=== PATIENT | female | born 1975 | race Caucasian/White ===

== ENCOUNTER → 2018-03-17 | Outpatient (CLI) | payer MEDICAID ==
[2018-03-17 09:24] LABS: HCT 42.2 % (34.0-46.0); MCHC 33.1 g/dL (31.0-37.0); MCV 90.6 fL (80.0-100.0); Mean Platelet Volume 7.4; Platelet Count 234 k/uL (150-450); RBC 4.66 m/uL (3.80-5.40); RDW 12.6 % (11.5-15.5); WBC 6.6 k/uL (3.8-10.6)
[2018-03-17 09:48] LABS: ALT 25 U/L (9-52); AST 17 U/L (14-36); Albumin 3.9 g/dL (3.5-5.0); Alkaline Phosphatase 46 U/L (38-126); Anion Gap 9 mmol/L; Blood Urea Nitrogen 13 mg/dL (7-17); Calcium 8.8 mg/dL (8.4-10.2); Carbon Dioxide 25 mmol/L (22-30); Chloride 105 mmol/L (98-107); Cholesterol 140 mg/dL (<200); Glucose 88 mg/dL (74-99); HDL Cholesterol 65 mg/dL (40-60); LDL Cholesterol,Calculated 63 mg/dL (0-99); Potassium 4.4 mmol/L (3.5-5.1); Sodium 139 mmol/L (137-145); Total Bilirubin 0.5 mg/dL (0.2-1.3); Total Protein 6.4 g/dL (6.3-8.2); Triglycerides 60 mg/dL (<150)
[2018-03-17 10:04] LABS: T4, Free (Free Thyroxine) 1.06 ng/dL (0.78-2.19)
== END | disposition home or self-care (01) ==
LOC: LABWHC1 08:40
PROVIDERS: ATTEND Obstetrics & Gynecology Obstetrics
DX: E55.9 Vitamin D deficiency, unspecified (principal); R63.5 Abnormal weight gain
CPT/HCPCS: 36415; 80053; 80061; 82306; 84439; 84443; 85027

== ENCOUNTER → 2018-04-25 | Outpatient (CLI) | payer MEDICAID ==
--- NOTE | 2018-04-27 12:04 | MM ---
Reason for exam: screening (asymptomatic). Last mammogram was performed 5 years and 6 months ago. History: Patient has history of other cancer at age 42. Took hormonal contraceptives for 4 years. Physical Findings: A clinical breast exam by your physician is recommended on an annual basis and results should be correlated with mammographic findings. MG 3D Screening Mammo W/Cad Bilateral CC and MLO view(s) were taken. Prior study comparison: October 26, 2012, mammogram. The breast tissue is heterogeneously dense. This may lower the sensitivity of mammography. 4mm circumscribed nodularity right breast is typically benign. No significant changes when compared with prior studies. ASSESSMENT: Benign, BI-RAD 2 RECOMMENDATION: Routine screening mammogram of both breasts in 1 year.
== END | disposition home or self-care (01) ==
LOC: RADMAMWWP 09:38
PROVIDERS: ATTEND Obstetrics & Gynecology Obstetrics
DX: Z12.31 Encounter for screening mammogram for malignant neoplasm of breast (principal)
CPT/HCPCS: 77063; 77067

== ENCOUNTER → 2019-09-14 | Outpatient (CLI) | payer MEDICAID ==
--- NOTE | 2019-09-15 11:37 | MM ---
Reason for exam: screening (asymptomatic). Last mammogram was performed 1 year and 5 months ago. History: Patient has history of other cancer at age 42. Took hormonal contraceptives for 4 years. Physical Findings: A clinical breast exam by your physician is recommended on an annual basis and results should be correlated with mammographic findings. MG 3D Screening Mammo W/Cad Bilateral CC and MLO view(s) were taken. Prior study comparison: April 25, 2018, bilateral MG 3d screening mammo w/cad. October 26, 2012, mammogram. The breast tissue is extremely dense which could obscure a lesion on mammography. There is chronic nodularity in the right breast. No significant changes when compared with prior studies. ASSESSMENT: Benign, BI-RAD 2 RECOMMENDATION: Routine screening mammogram of both breasts in 1 year.
== END | disposition home or self-care (01) ==
LOC: RADMAMWWP 13:32
PROVIDERS: ATTEND Obstetrics & Gynecology Obstetrics
DX: Z12.31 Encounter for screening mammogram for malignant neoplasm of breast (principal)
CPT/HCPCS: 77063; 77067

== ENCOUNTER → 2019-10-26 | Outpatient (CLI) | payer MEDICAID ==
[2019-10-26 11:45] LABS: Basophils # (A) 0.1 k/uL (0-0.2); Basophils % (A) 1 %; Eosinophils # (A) 0.1 k/uL (0-0.7); Eosinophils % (A) 3 %; HCT 43.2 % (34.0-46.0); HGB 13.7 gm/dL (11.4-16.0); Lymphocytes # (A) 1.7 k/uL (1.0-4.8); Lymphocytes % (A) 34 %; MCH 29.5 pg (25.0-35.0); MCHC 31.6 g/dL (31.0-37.0); MCV 93.5 fL (80.0-100.0); Mean Platelet Volume 8.1; Monocytes # (A) 0.3 k/uL (0-1.0); Monocytes % (A) 6 %; Neutrophils # (A) 2.7 k/uL (1.3-7.7); Neutrophils % (A) 54 %; Platelet Count 256 k/uL (150-450); RBC 4.62 m/uL (3.80-5.40); RDW 12.5 % (11.5-15.5); WBC 5.1 k/uL (3.8-10.6)
[2019-10-26 16:55] LABS: Albumin 4.2 g/dL (3.80-4.90); Albumin/Globulin Ratio 2.21 (1.60-3.17); Anion Gap 6.4 mmol/L (4.00-12.00); Calcium 9.2 mg/dL (8.7-10.3); Carbon Dioxide 27.6 mmol/L (21.6-31.8); Chol/HDL Ratio 2.51; Globulin 1.9 g/dL (1.6-3.3); LDL Cholesterol,Calculated 66.4 mg/dL (0.0-131.0); Non-African American GFR(CKD) 106.1 (60.0-200.0); Potassium 4.3 mmol/L (3.5-5.5); Total Bilirubin 0.6 mg/dL (0.2-1.2); Total Protein 6.1 g/dL (6.2-8.2); VLDL Calculation 13.6 mg/dL (5.00-40.00)
== END | disposition home or self-care (01) ==
LOC: LABWHC1 10:34
PROVIDERS: ATTEND Internal Medicine
DX: E78.2 Mixed hyperlipidemia (principal); N83.292 Other ovarian cyst, left side
CPT/HCPCS: 36415; 80053; 80061; 84443; 85025

== ENCOUNTER 2020-07-24 13:07 | Emergency (ER) | payer MEDICAID, OTHER ==
[2020-07-24 13:15] VITALS: BP 133/86; PULSE 52; RESP 18; TEMP 98.4
--- NOTE | 2020-07-24 14:25 | ED ---
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 Patient just completed a delivery. She was attempting to give the child a vitamin K injection. Injection was performed. When the patient went to retract the needle she sustained a needle poke to her right index finger. It was enough to draw some blood. Patient is unaware of the status of infectious disease of the mother. She herself is vaccinated against hepatitis B. She did irrigate the site. Presents for needlestick testing - Related Data Allergies Allergy/AdvReac Type Severity Reaction Status Date / Time No Known Allergies Allergy Verified 07/24/20 13:15 Review of Systems ROS Statement: Those systems with pertinent positive or pertinent negative responses have been documented in the HPI. ROS Other: All systems not noted in ROS Statement are negative. Past Medical History Past Medical History: No Reported History History of Any Multi-Drug Resistant Organisms: None Reported Past Surgical History: Section Additional Past Surgical History / Comment(s): kidney surgery Past Psychological History: No Psychological Hx Reported Smoking Status: Never smoker Past Alcohol Use History: Occasional Past Drug Use History: None Reported General Exam Limitations: no limitations Course Vital Signs 07/24/20 13:13 Temperature 98.4 F Pulse Rate 52 L Respiratory 18 Rate Blood Pressure 133/86 O2 Sat by Pulse 100 Oximetry Medical Decision Making - Medical Decision Making Upon arrival patient is placed into room 7. A thorough history and physical exam was performed. The patient does have laboratory studies completed for needlestick injury. Review of the source patient reveals no history of any infectious diseases and his mother. The patient wishes to forego prophylaxis at this time. Patient will be called with results of her testing if they are positive. She understood this and she has any new or worsening symptoms she is to return to the emergency room. Patient was then discharged home in stable condition Disposition Clinical Impression: Needlestick injury accident Disposition: HOME SELF-CARE Condition: Stable Instructions (If sedation given, give patient instructions): Needle Stick Injuries (ED) Additional Instructions: We will call you with any positive results. Return to the emergency room for any new or worsening symptoms Is patient prescribed a controlled substance at d/c from ED?: No Referrals: Diana Ware MD [Primary Care Provider] - 1-2 days Time of Disposition: 14:25
== END 2020-07-24 14:29 | disposition home or self-care (01) ==
LOC: EC 13:07
DX: S69.91XA Unspecified injury of right wrist, hand and finger(s), initial encounter (principal); Z77.21 Contact with and (suspected) exposure to potentially hazardous body fluids; W46.1XXA Contact with contaminated hypodermic needle, initial encounter
CPT/HCPCS: 99283

== ENCOUNTER → 2020-09-18 | Outpatient (CLI) | payer MEDICAID ==
--- NOTE | 2020-09-23 09:07 | MM ---
Reason for exam: screening (asymptomatic). Last mammogram was performed 1 year ago. History: Patient has history of other cancer at age 42. Took hormonal contraceptives for 4 years. Physical Findings: A clinical breast exam by your physician is recommended on an annual basis and results should be correlated with mammographic findings. MG 3D Screening Mammo W/Cad Bilateral CC and MLO view(s) were taken. Prior study comparison: September 14, 2019, bilateral MG 3d screening mammo w/cad. April 25, 2018, bilateral MG 3d screening mammo w/cad. The breast tissue is heterogeneously dense. This may lower the sensitivity of mammography. Finding: There is a 7-8 mm high density, oval mass located 3-5cm from the nipple in the 9 o'clock position of the right breast. New finding since September 14, 2019 and April 25, 2018. ASSESSMENT: Incomplete: need additional imaging evaluation, BI-RAD 0 RECOMMENDATION: Ultrasound of the right breast. [facility] will attempt to contact patient to return for ultrasound.
== END | disposition home or self-care (01) ==
LOC: RADMAMWWP 09:59
PROVIDERS: ATTEND Obstetrics & Gynecology Obstetrics
DX: Z12.31 Encounter for screening mammogram for malignant neoplasm of breast (principal)
CPT/HCPCS: 77063; 77067

== ENCOUNTER → 2020-09-30 | Outpatient (CLI) | payer MEDICAID ==
--- NOTE | 2020-09-30 10:32 | USB ---
Reason for exam: additional evaluation requested from abnormal screening. History: Patient has history of other cancer at age 42. Took hormonal contraceptives for 4 years. Physical Findings: Nurse did not find any significant physical abnormalities on exam. US Breast Workup Limited RT Right limited breast ultrasound including focal area of concern, retroareolar and axilla demonstrates a 6 x 3 x 5mm oval, cystic lesion at 9 o'clock this may correspond to the 7mm nodule on mammogramm, 6 month follow up mammogram recommended, a 6 x 3 x 7mm oval, cystic lesion at 10 o'clock and a 8 x 4 x 8mm oval, cystic lesion at 10 o'clock. Scanned 9-12 o'clock. These results were verbally communicated with the patient and result sheet given to the patient on 09/30/20. ASSESSMENT: Probably benign, BI-RAD 3 RECOMMENDATION: Follow-up diagnostic mammogram of the right breast in 6 months.
== END | disposition home or self-care (01) ==
LOC: RADUSWWP 08:59
PROVIDERS: ATTEND Obstetrics & Gynecology Obstetrics
DX: R92.8 Other abnormal and inconclusive findings on diagnostic imaging of breast (principal)

== ENCOUNTER → 2020-11-11 | Outpatient (CLI) | payer MEDICAID ==
[2020-11-11 10:05] LABS: ALT 16 U/L (4-34); AST 20 U/L (14-36); African American GFR (CKD) >90 (>60 ml/min/1.73 sqM); Alkaline Phosphatase 52 U/L (38-126); Anion Gap 6 mmol/L; Blood Urea Nitrogen 14 mg/dL (7-17); Calcium 9.1 mg/dL (8.4-10.2); Carbon Dioxide 28 mmol/L (22-30); Chloride 103 mmol/L (98-107); Cholesterol 165 mg/dL (<200); Glucose 98 mg/dL (74-99); HDL Cholesterol 67 mg/dL (40-60); LDL Cholesterol,Calculated 87 mg/dL (0-99); Non-African American GFR(CKD) >90 (>60 ml/min/1.73 sqM); Potassium 4.4 mmol/L (3.5-5.1); Sodium 137 mmol/L (137-145); Total Bilirubin 0.6 mg/dL (0.2-1.3); Total Protein 6.8 g/dL (6.3-8.2); Triglycerides 57 mg/dL (<150)
[2020-11-11 10:34] LABS: Basophils # (A) 0.1 k/uL (0-0.2); Basophils % (A) 1 %; Eosinophils # (A) 0.2 k/uL (0-0.7); Eosinophils % (A) 3 %; HCT 43.6 % (34.0-46.0); Lymphocytes # (A) 1.7 k/uL (1.0-4.8); Lymphocytes % (A) 30 %; MCH 29.7 pg (25.0-35.0); MCHC 32.2 g/dL (31.0-37.0); MCV 92.2 fL (80.0-100.0); Mean Platelet Volume 7.7; Monocytes # (A) 0.4 k/uL (0-1.0); Monocytes % (A) 7 %; Neutrophils # (A) 3.2 k/uL (1.3-7.7); Neutrophils % (A) 56 %; Platelet Count 278 k/uL (150-450); RBC 4.73 m/uL (3.80-5.40); RDW 12.6 % (11.5-15.5); WBC 5.7 k/uL (3.8-10.6)
--- NOTE | 2020-11-11 16:58 | US ---
EXAMINATION TYPE: US gallbladder DATE OF EXAM: 11/11/2020 COMPARISON: NONE CLINICAL HISTORY: 45-year-old female R10.13 dyspepsia. Occasional diarrhea. TECHNIQUE: Multiple sonographic images of the right upper quadrant are obtained. FINDINGS: EXAM MEASUREMENTS: Liver Length: 16.5 cm Gallbladder Wall: 0.1 cm CBD: 0.5 cm Right Kidney: 11.4 x 5.1 x 5.4 cm Pancreas: wnl Liver: wnl Gallbladder: wnl Evidence for sonographic Carrasquillo's sign: no CBD: wnl Right Kidney: wnl IMPRESSION: Unremarkable sonographic examination of the right upper quadrant.
== END | disposition home or self-care (01) ==
LOC: RADUSWWP 09:01
PROVIDERS: ATTEND Internal Medicine
DX: R10.13 Epigastric pain (principal); Z00.00 Encounter for general adult medical examination without abnormal findings
CPT/HCPCS: 76705; 80053; 80061; 84443; 85025

== ENCOUNTER → 2021-04-04 | Outpatient (CLI) | payer MEDICAID ==
--- NOTE | 2021-04-07 09:18 | MM ---
Reason for exam: follow-up at short interval from prior study. Last mammogram was performed 7 months ago. History: Patient has history of other cancer at age 42. Took hormonal contraceptives for 4 years. Physical Findings: Nurse did not find any significant physical abnormalities on exam. MG 3D Diag Mammo W/Cad RT CC and MLO view(s) were taken of the right breast. Prior study comparison: September 18, 2020, bilateral MG 3d screening mammo w/cad. September 14, 2019, bilateral MG 3d screening mammo w/cad. The breast tissue is heterogeneously dense. This may lower the sensitivity of mammography. 7mm stable well defined nodule 9 o'clock, 5cm from nipple. Probably benign. These results were verbally communicated with the patient and result sheet given to the patient on 04/04/21. ASSESSMENT: Probably benign, BI-RAD 3 RECOMMENDATION: Follow-up diagnostic mammogram of both breasts in 6 months. Back on schedule.
== END | disposition home or self-care (01) ==
LOC: RADMAMWWP 14:55
PROVIDERS: ATTEND Obstetrics & Gynecology Obstetrics
DX: R92.8 Other abnormal and inconclusive findings on diagnostic imaging of breast (principal); Z85.9 Personal history of malignant neoplasm, unspecified; Z79.3 Long term (current) use of hormonal contraceptives
CPT/HCPCS: 77061; 77065

== ENCOUNTER → 2021-05-01 | Outpatient (CLI) | payer MEDICAID | END | disposition home or self-care (01) | LOC: LABWHC1 15:10 | PROVIDERS: ATTEND Emergency Medicine | DX: Z20.822 Contact with and (suspected) exposure to COVID-19 (principal) | CPT/HCPCS: U0003; U0005 ==

== ENCOUNTER → 2021-11-27 | Outpatient (CLI) | payer MEDICAID ==
--- NOTE | 2021-11-27 11:58 | MM ---
Reason for exam: follow-up at short interval from prior study. Last mammogram was performed 8 months ago. History: Patient has history of other cancer at age 42. Took hormonal contraceptives for 4 years. Physical Findings: A clinical breast exam by your physician is recommended on an annual basis and results should be correlated with mammographic findings. MG 3D Diag Mammo W/Cad KIAH Bilateral CC and MLO view(s) were taken. Prior study comparison: April 04, 2021, right breast MG 3d diag mammo w/cad RT. September 18, 2020, bilateral MG 3d screening mammo w/cad. The breast tissue is heterogeneously dense. This may lower the sensitivity of mammography. There is chronic nodularity in the left breast. No significant new findings when compared with previous films. These results were verbally communicated with the patient and result sheet given to the patient on 11/27/21. ASSESSMENT: Benign, BI-RAD 2 RECOMMENDATION: Routine screening mammogram of both breasts in 1 year.
== END | disposition home or self-care (01) ==
LOC: RADMAMWWP 10:58
PROVIDERS: ATTEND Obstetrics & Gynecology Obstetrics
DX: R92.8 Other abnormal and inconclusive findings on diagnostic imaging of breast (principal)
CPT/HCPCS: 77062; 77066

== ENCOUNTER → 2022-02-10 | Outpatient (CLI) | payer MEDICAID ==
[2022-02-10 14:22] LABS: Basophils # (A) 0.06 X 10*3/uL (0.00-0.10); Basophils % (A) 0.8 %; Eosinophils % (A) 2.7 %; HCT 41.9 % (37.2-46.3); Immature Grans, Automated 0.3 %; Lymphocytes # (A) 1.81 X 10*3/uL (0.90-5.00); Lymphocytes % (A) 24.1 %; MCV 93.5 fL (80.0-97.0); Mean Platelet Volume 10.7 fL (9.5-12.2); Monocytes # (A) 0.56 X 10*3/uL (0.20-1.00); Monocytes % (A) 7.5 %; NRBC Per 100 WBC 0 /100 WBCS (0.0-0.0); Neutrophils # (A) 4.86 X 10*3/uL (1.80-7.70); Neutrophils % (A) 64.6 %; Platelet Count 312 X 10*3/uL (140-440); RBC 4.48 X 10*6/uL (4.10-5.20); RDW 12.6 % (11.5-14.5); WBC 7.51 X 10*3/uL (4.50-10.00)
[2022-02-10 15:00] LABS: ALT 13 U/L (8-44); AST 13 U/L (13-35); African American GFR (CKD) 127.6 (60.0-200.0); Albumin 4.6 g/dL (3.8-4.9); Alkaline Phosphatase 58 U/L (41-126); Blood Urea Nitrogen 13.5 mg/dL (9.0-27.0); Calcium 9.2 mg/dL (8.7-10.3); Carbon Dioxide 23.7 mmol/L (20.0-27.5); Chloride 104 mmol/L (96-109); Chol/HDL Ratio 2.17 Ratio; Globulin 2.3 g/dL (1.6-3.3); Glucose 100 mg/dL (70-110); LDL Cholesterol,Calculated 84.8 mg/dL (0.0-131.0); Non-African American GFR(CKD) 110.1 (60.0-200.0); Potassium 4.3 mmol/L (3.5-5.5); Sodium 140 mmol/L (135-145); Total Protein 6.9 g/dL (6.2-8.2); VLDL Calculation 11.82 mg/dL (5.00-40.00)
== END | disposition home or self-care (01) ==
LOC: LABWHC1 07:19
PROVIDERS: ATTEND Internal Medicine
DX: Z00.00 Encounter for general adult medical examination without abnormal findings (principal); F41.9 Anxiety disorder, unspecified; G25.81 Restless legs syndrome
CPT/HCPCS: 36415; 80053; 80061; 82306; 83036; 84443; 85025

== ENCOUNTER → 2022-06-04 | Outpatient (CLI) | payer MEDICAID ==
--- NOTE | 2022-06-04 12:30 | NM ---
EXAMINATION TYPE: NM hepatobiliary w EF DATE OF EXAM: 06/04/2022 COMPARISON: Ultrasound gallbladder 11/11/2020 HISTORY: Right upper quadrant pain TECHNIQUE: After the intravenous administration of 4.2 mCi Tc 99m Mebrofenin hepatobiliary scintigrap hy is performed. Immediate images post injection. FINDINGS: There is satisfactory initial accumulation of tracer by the liver. The gallbladder is visualized wit hin 10 minutes. The small bowel activity is noted within 16 minutes. At one hour 8 ounces of oral e nsure plus is given to mimic CCK and gallbladder ejection fraction is calculated at 88 %, slightly ab ove the upper limit of the normal range. Therefore there is no scintigraphic evidence of cystic or c ommon bile duct obstruction to suggest acute cholecystitis or gallbladder dyskinesia. IMPRESSION: Findings could possibly be indicative of hyper dynamic gallbladder
== END | disposition home or self-care (01) ==
LOC: RADNMMAIN 06:46
PROVIDERS: ATTEND Internal Medicine
DX: R10.11 Right upper quadrant pain (principal)
CPT/HCPCS: 78226; A9537

== ENCOUNTER → 2022-07-13 | Outpatient (CLI) | payer MEDICAID ==
--- NOTE | 2022-07-13 19:34 | CT ---
EXAMINATION TYPE: CT abdomen pelvis w con CT DLP: 1241 mGycm, Automated exposure control for dose reduction was used. DATE OF EXAM: 07/13/2022 6:59 PM COMPARISON: None. CLINICAL INDICATION:Female, 46 years old with history of R10.11 RUQ pain; TECHNIQUE: Axial CT of the abdomen and pelvis. Sagittal and coronal reformats were created on a [employer] workstation. Contrast used:100 mL of Isovue 300 with IV Contrast, Oral contrast used: with Oral Contrast FINDINGS: LOWER CHEST: Unremarkable ABDOMEN LIVER: Unremarkable GALLBLADDER AND BILE DUCTS: Unremarkable. PANCREAS: Unremarkable. SPLEEN: Unremarkable. ADRENAL GLANDS: Unremarkable. KIDNEYS AND URETERS: Dilation of the renal collecting systems bilaterally. No evidence of renal calcu solo. PELVIS BLADDER: Unremarkable REPRODUCTIVE: Enlarged heterogenous uterus suspected posterior fundal fibroid measuring up to 2.6 cm. . 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 ABDOMEN & PELVIS STOMACH AND BOWEL: No evidence of bowel obstruction. PERITONEUM: No evidence of pneumoperitoneum or free fluid. VASCULATURE: No evidence of aortic aneurysm. MUSCULOSKELETAL: No acute osseous abnormalities LYMPH NODES: No gross evidence for lymphadenopathy. SOFT TISSUE/ABDOMINAL WALL: Fat filled umbilical hernia. IMPRESSION: 1. No evidence for acute intraluminal process. The bladder and right kidney are within normal limits. 2. Enlarged fibroid uterus. 3. Dilation of the renal collecting systems bilaterally, left greater than right. Findings could be s econdary to mass effect from enlarged fibroid uterus on the ureters.
== END | disposition home or self-care (01) ==
LOC: RADCTMAIN 16:40
PROVIDERS: ATTEND Internal Medicine
DX: D25.9 Leiomyoma of uterus, unspecified (principal); N28.89 Other specified disorders of kidney and ureter
CPT/HCPCS: 74177; Q9967

== ENCOUNTER 2022-09-29 09:01 | Day surgery (SDC) | payer MEDICAID ==
[~2022-09-29 09:01] MED LIST: LACTATED RINGERS 1,000 ML IV SCH
[2022-09-29 10:07] VITALS: RESP 16; TEMP 97.4
[2022-09-29] MEDS ORDERED: LIDOCAINE 1% (10MG/ML) FOR IV START INTRADERMA ONE (10:14)
[2022-09-29] MEDS ORDERED: MIDAZOLAM 2 MG/2 ML VIAL ONE (10:19)
[2022-09-29] MEDS ORDERED: PROPOFOL 10 MG/ML 20 ML VIAL IV ONE (10:19)
[2022-09-29] MEDS ORDERED: KETAMINE 10 MG/ML 20 ML VIAL ONE (10:19)
--- NOTE | 2022-09-29 10:25 | P.GSHP ---
History of Present Illness H&P Date: 09/29/22 Chief Complaint: Epigastric pain 46-year-old female with frequent attacks of epigastric discomfort. Symptoms somewhat improved with Prilosec recently. Patient has episodes of nausea as well. Some radiation to the back. Patient has had a HIDA scan, ultrasound, and CAT scan showing no definite abnormalities. No change in bowel habits. Past Medical History Past Medical History: No Reported History History of Any Multi-Drug Resistant Organisms: None Reported Past Surgical History: Section Additional Past Surgical History / Comment(s): kidney surgery Past Anesthesia/Blood Transfusion Reactions: No Reported Reaction Smoking Status: Never smoker Medications and Allergies Home Medications Medication Instructions Recorded Confirmed Type Omeprazole [PriLOSEC] 40 mg PO DAILY 09/24/22 09/29/22 History Allergies Allergy/AdvReac Type Severity Reaction Status Date / Time No Known Allergies Allergy Verified 09/29/22 10:09 Surgical - Exam Vital Signs Temp Pulse Resp BP Pulse Ox 97.4 F L 66 16 122/58 100 09/29/22 10:03 09/29/22 10:03 09/29/22 10:03 09/29/22 10:03 09/29/22 10:03 Physical exam: General: Well-developed, well-nourished HEENT: Normocephalic, sclerae nonicteric Abdomen: Nontender, nondistended Extremities: No edema Neuro: Alert and oriented Assessment and Plan (1) Epigastric pain Narrative/Plan: 46-year-old female with epigastric pain. We'll proceed with upper endoscopy. Current Visit: Yes Status: Acute Code(s): R10.13 - EPIGASTRIC PAIN SNOMED Code(s): 91064310
--- NOTE | 2022-09-29 10:33 | P.PCN ---
Date of Procedure: 09/29/22 Procedure(s) Performed: Preoperative Dx: Epigastric pain Postoperative Dx: Mild gastritis, small hiatal hernia Procedure: EGD with Bx Anesthesia: Sedation Endoscopist: Dr. Vences Specimens: Antrum Endoscopic Procedure: The patient was on the endoscopy table in the left decubitus position. The Olympus gastroscope was inserted into the oropharynx and passed under direct visualization to the region of the third portion of the duodenum. From that point the scope was slowly withdrawn inspecting all surfac es carefully. There were no neoplastic inflammatory or polypoid lesions throughout the duodenum. The pylorus was widely patent. The stomach was carefully inspected. There was mild gastritis present. A biopsy of the antrum took place to rule out H. pylori. Retroflexion revealed a small sliding hiatal hernia. The GE junction was present 1 cm above the diaphragmatic hiatus. The esophagus was then carefully examined. There were no neoplastic inflammatory or polypoid lesions throughout the visualized esophagus. The patient was then taken to the recovery room in stable condition per anesthesia guidelines. Recommendations: Continue as needed antiacid therapy. Await biopsy results.
[2022-09-29 11:16] VITALS: BP 123/75; PULSE 75
== END 2022-09-29 11:26 | disposition home or self-care (01) ==
LOC: ORWHC2ENDO 09:01
PROVIDERS: ATTEND Surgery
DX: K29.50 Unspecified chronic gastritis without bleeding (principal); K44.9 Diaphragmatic hernia without obstruction or gangrene; K21.9 Gastro-esophageal reflux disease without esophagitis; Z98.891 History of uterine scar from previous surgery; Z98.890 Other specified postprocedural states; Z79.1 Long term (current) use of non-steroidal anti-inflammatories (NSAID); Z79.899 Other long term (current) drug therapy
CPT/HCPCS: 81025; 88305; 43239; J2250; J2704

== ENCOUNTER → 2022-10-22 | Outpatient (CLI) | payer MEDICAID ==
--- NOTE | 2022-10-22 17:00 | MR ---
EXAMINATION TYPE: MR thoracic spine wo con DATE OF EXAM: 10/22/2022 COMPARISON: NONE HISTORY: Mid back pain that radiates into ribs. TECHNIQUE: Multiplanar, multisequence imaging of thoracic spine is performed without contrast FINDINGS: There is levoconvex scoliosis centered in the upper to mid thoracic spine on coronal images . Spinal cord shows normal caliber and signal as it courses the thoracic spine. Vertebral body heig hts are satisfactory. There is posterior disc herniation effacing anterior thecal sac at T6-T7 level at peak of thoracic curvature. There is additional posterior disc herniation effacing anterior theca l sac at T7-T8 level on sagittal image 7. Tiny posterior disc herniations noted at T3-T4 and T4-T5 le vels on sagittal image 8. Bone marrow signal intensity is preserved. Review of the axial images confirm tiny right paracentral disc protrusions at T3-T4 and T4-T5 levels. Larger central disc herniation at T6/T7 level extending to the ventral surface of spinal cord on kathryn ge 2 series 801. Axial image at T7-T8 level shows left paracentral disc protrusion effacing anterolat eral thecal sac. Smaller left paracentral disc protrusion noted at T8-T9 level. Remainder thoracic le vels within normal limits. No suspicious incidental finding in the visualized upper abdomen were thor ax is identified. IMPRESSION: Scoliotic curvature with some multilevel degenerative changes in the thoracic spine as de tailed above.
== END | disposition home or self-care (01) ==
LOC: RADMRIMAIN 16:04
PROVIDERS: ATTEND Internal Medicine
DX: M47.814 Spondylosis without myelopathy or radiculopathy, thoracic region (principal); M41.84 Other forms of scoliosis, thoracic region; M51.24 Other intervertebral disc displacement, thoracic region
CPT/HCPCS: 72146

== ENCOUNTER → 2023-01-19 | Outpatient (CLI) | payer MEDICAID ==
--- NOTE | 2023-01-20 07:55 | MM ---
Reason for Exam: Screening (asymptomatic). Last mammogram was performed 1 year(s) and 1 month(s) ago. Patient History: Menarche at age 14. First Full-Term at age 23. Premenopausal. Other cancer, age 42. Patient used Hormonal Contraceptives for 4 years. Risk Values: Rukhsana 5 year model risk: 0.8%. NCI Lifetime model risk: 8.5%. Prior Study Comparison: 09/18/2020 Bilateral Screening Mammogram, [facility]. 04/04/2021 Right Diagnostic Mammogram, [facility]. 11/27/2021 Bilateral Diagnostic Mammogram, [facility]. Tissue Density: The breast tissue is extremely dense which could obscure a lesion on mammography. Findings: Analyzed By CAD. There is no suspicious group of microcalcifications or new suspicious mass in either breast. Overall Assessment: Negative, BI-RAD 1 Management: Screening Mammogram of both breasts in 1 year. A clinical breast exam by your physician is recommended on an annual basis and results should be correlated with mammographic findings. [facility] will attempt to contact patient to return for supplemental views and ultrasound if indicated. Electronically signed and approved by: Sharan Cormier DO
== END | disposition home or self-care (01) ==
LOC: RADMAMWWP 10:14
PROVIDERS: ATTEND Obstetrics & Gynecology Obstetrics
DX: Z12.31 Encounter for screening mammogram for malignant neoplasm of breast (principal)
CPT/HCPCS: 77063; 77067

== ENCOUNTER 2024-01-09 20:41 | Emergency (ER) | payer MEDICAID ==
--- NOTE | 2024-01-09 21:27 | XR ---
EXAMINATION TYPE: XR KUB DATE OF EXAM: 01/09/2024 9:22 PM CLINICAL INDICATION:Female, 48 years old with history of abdominal pain; H COMPARISON: None. TECHNIQUE: One radiographic view of the abdomen was obtained. FINDINGS: The bowel gas pattern is nonspecific without dilated loops of small or large bowel. There i s no evidence for organomegaly or pneumoperitoneum. The osseous structures are intact. No abnormal calcifications are present. Fecal material and gas are demonstrated throughout the colon and rectum. IMPRESSION: Nonspecific bowel gas pattern without radiographic evidence for acute process.
[2024-01-09 21:37] LABS: Basophils # (A) 0.1 k/uL (0-0.2); Basophils % (A) 1 %; Eosinophils # (A) 0.1 k/uL (0-0.7); Eosinophils % (A) 1 %; HCT 40.5 % (34.0-46.0); HGB 13.5 gm/dL (11.4-16.0); Lymphocytes # (A) 1.6 k/uL (1.0-4.8); Lymphocytes % (A) 10 %; MCH 30.8 pg (25.0-35.0); MCHC 33.2 g/dL (31.0-37.0); MCV 92.7 fL (80.0-100.0); Mean Platelet Volume 8.3; Monocytes % (A) 6 %; Neutrophils # (A) 13.1 k/uL (1.3-7.7); Neutrophils % (A) 81 %; Platelet Count 272 k/uL (150-450); RBC 4.37 m/uL (3.80-5.40); RDW 12.8 % (11.5-15.5); WBC 16.1 k/uL (3.8-10.6)
[2024-01-09 21:40] LABS: Appearance,Urine Cloudy (Clear); Bacteria,Urine Occasional /hpf; Bilirubin,Urine Negative (Negative); Blood,Urine Small (Negative); Color,Urine Colorless; Glucose,Urine (UA) Negative (Negative); Ketones,Urine Trace (Negative); Leukocyte Esterase,Urine Negative (Negative); Nitrite,Urine Negative (Negative); PH, Urine 6.5 (5.0-8.0); Protein,Urine Negative (Negative); RBC,Urine 1 /hpf (0-5); Specific Gravity,Urine 1.005 (1.001-1.035); Squamous Epithelial Cell,Urine 8 /hpf (0-4); Urobilinogen,Urine <2.0 mg/dL (<2.0); WBC,Urine 1 /hpf (0-5)
[2024-01-09 21:50] LABS: Potassium 3.9 mmol/L (3.5-5.1)
[2024-01-09 21:51] LABS: ALT 15 U/L (4-34); AST 22 U/L (14-36); African American GFR (CKD) >90 (>60 ml/min/1.73 sqM); Alkaline Phosphatase 68 U/L (38-126); Amylase 48 U/L (30-110); Anion Gap 6 mmol/L; Blood Urea Nitrogen 10 mg/dL (7-17); Calcium 8.9 mg/dL (8.4-10.2); Carbon Dioxide 25 mmol/L (22-30); Chloride 106 mmol/L (98-107); Glucose 103 mg/dL (74-99); Lipase 50 U/L (23-300); Non-African American GFR(CKD) >90 (>60 ml/min/1.73 sqM); Sodium 137 mmol/L (137-145); Total Bilirubin 0.9 mg/dL (0.2-1.3)
--- NOTE | 2024-01-09 21:57 | ED ---
Abdominal Pain HPI - General Source: patient, RN notes reviewed Mode of arrival: ambulatory Limitations: no limitations <Blaire Abel - Last Filed: 01/09/24 21:53> <Yony Bingham - Last Filed: 01/09/24 23:38> - General Chief Complaint: Abdominal Pain Stated Complaint: pelvic pain abd pain Time Seen by Provider: 01/09/24 20:58 - History of Present Illness Initial Comments: Quick [id number] female with complaint of pelvic pain and fullness since Wednesday. Patient denies dysuria, hematuria, vaginal bleeding or discharge. 4 previous C-sections. Last menstrual cycle completed 4 days ago. (Blaire Abel) Dictation was produced using [employer] dictation software. please excuse any gr ammatical, word or spelling errors. Chief Complaint: 48-year-old female presents with lower abdominal pain History of Present Illness: Patient is a 48-year-old female no significant comorbidities presents to the ER for 2 to 3 days of lower abdominal pain. She states that she admittedly has been having some low-grade fevers at home. Patient denies any history appendectomy. Patient states that the pain is constant but also exacerbated with abrupt movements The ROS documented in this emergency department record has been reviewed and confirmed by me. Those systems with pertinent positive or negative responses have been documented in the HPI. All other systems are other negative and/or noncontributory. (Yony Bingham) - Related Data Home Medications Medication Instructions Recorded Confirmed Omeprazole [PriLOSEC] 40 mg PO DAILY 09/24/22 09/29/22 Previous Rx's Medication Instructions Recorded Amoxic-Pot Clav 875-125Mg 1 tab PO Q8H 5 Days #15 tab 01/09/24 [Augmentin 875-125] Allergies Allergy/AdvReac Type Severity Reaction Status Date / Time No Known Allergies Allergy Verified 01/09/24 21:01 Review of Systems ROS Other: All systems not noted in ROS Statement are negative. <Balire Abel - Last Filed: 01/09/24 21:53> ROS Other: All systems not noted in ROS Statement are negative. <Yony Bingham - Last Filed: 01/09/24 23:38> ROS Statement: Those systems with pertinent positive or pertinent negative responses have been documented in the HPI. Past Medical History Past Medical History: Cancer Additional Past Medical History / Comment(s): skin CA History of Any Multi-Drug Resistant Organisms: None Reported Past Surgical History: Section Additional Past Surgical History / Comment(s): kidney surgery, C -section X4 Past Anesthesia/Blood Transfusion Reactions: No Reported Reaction Past Psychological History: Anxiety Smoking Status: Never smoker Past Alcohol Use History: Occasional Past Drug Use History: None Reported <Blaire Abel - Last Filed: 01/09/24 21:53> General Exam Limitations: no limitations <Blaire Abel - Last Filed: 01/09/24 21:53> <Yony Bingham - Last Filed: 01/09/24 23:38> - General Exam Comments Initial Comments: Visual Physical Exam Vital signs reviewed General: Well-appearing, nontoxic, no acute distress. Head: Normocephalic, atraumatic Eyes: PERRLA, EOMI ENT: Airway patent Chest: Nonlabored breathing Skin: No visual rash, normal skin tone Neuro: Alert and oriented 3 Musculoskeletal: No gross abnormalities (Blaire Abel) PHYSICAL EXAM: General Impression: Alert and oriented x3, not in acute distress HEENT: Normocephalic atraumatic, extra-ocular movements intact, pupils equal and reactive to light bilaterally, mucous membranes moist. Cardiovascular: Heart regular rate and rhythm Chest: Able to complete full sentences, no retractions, no tachypnea Abdomen: abdomen soft, n palpatory tenderness to the suprapubic abdomen, non-dis tended, no organomegaly Musculoskeletal: Pulses present and equal in all extremities, no peripheral edema Motor: no focal deficits noted Neurological: CN II-XII grossly intact, no focal motor or sensory deficits noted Skin: Intact with no visualized rashes Psych: Normal affect and mood (Yony Bingham) Course Vital Signs 01/09/24 21:02 Temperature 98.0 F Pulse Rate 71 Respiratory 16 Rate Blood Pressure 145/84 O2 Sat by Pulse 99 Oximetry Medical Decision Making - Lab Data Result diagrams: 01/09/24 21:17 01/09/24 21:17 <Blaire Abel - Last Filed: 01/09/24 21:53> - Lab Data Result diagrams: 01/09/24 21:17 01/09/24 21:17 <OtiliaYony D - Last Filed: 01/09/24 23:38> - Medical Decision Making I completed the quick note portion of this chart signed Blaire Abel PA-C (Blaire Abel) Was pt. sent in by a medical professional or institution ([facility]ID[facility] Villa, SENIOR SYSTEM OPERATOR, urgent care, hospital, or [facility]...) When possible be specific @ -No Did you speak to anyone other than the patient for history (EMS, parent, family, police, friend...)? What history was obtained from this source @ -No Did you review nursing and triage notes (agree or disagree)? Why? @ -I reviewed and agree with nursing and triage notes Were old charts reviewed (outside hosp., previous admission, EMS record, old E KG, old radiological studies, urgent care reports/EKG's, [facility] records)? Report findings @ -No old charts were reviewed Differential Diagnosis (chest pain, altered mental status, abdominal pain women, abdominal pain men, vaginal bleeding, musculoskeletal, weakness, fever, dyspnea, syncope, headache, dizziness, GI bleed, back pain, seizure, CVA, palpatations, mental health)? @ -Differential Abdominal Pain Women: Appendicitis, Cholecystitis, diverticulosis, ischemic bowel, pancreatitis, hepatitis, UTI, gastroenteritis, AAA, incarcerated hernia, bowel obstruction, constipation, inflammatory bowel, hepatitis, peptic ulcer disease, splenic infarction, perforated viscus, vulvitis, ovarian torsion, PID, kidney stone, placenta abruption, this is not meant to be an all-inclusive list EKG interpreted by me (3pts min.). @ -None done X-rays interpreted by me (1pt min.). @ -None done CT interpreted by me (1pt min.). @ -CT of the abdomen and pelvis shows uncomplicated diverticulitis U/S interpreted by me (1pt. min.). @ -None done What testing was considered but not performed or refused? (CT, X-rays, U/S, labs)? Why? @ -None What meds were considered but not given or refused? Why? @ -None Did you discuss the management of the patient with other professionals (professionals i.e. KASSIDY Villa, SENIOR SYSTEM OPERATOR, lab, RT, psych nurse, high school social studies tutor, textile science technician, teacher, amphibious operations officer, pillowcase sewer)? Give summary @ -No Was smoking cessation discussed for >3mins.? @ -No Was critical care preformed (if so, how long)? @ -No Were there social determinants of health that impacted care today? How? (H omelessness, low income, unemployed, alcoholism, drug addiction, transportation, low edu. Level, literacy, decrease access to med. care, skilled nursing, rehab)? @ -No Was there de-escalation of care discussed even if they declined (Discuss DNR or withdrawal of care, Hospice)? DNR status @ -No What co-morbidities impacted this encounter? (DM, HTN, Smoking, COPD, CAD, Cancer, CVA, ARF, Chemo, Hep., AIDS, mental health diagnosis, sleep apnea, morbid obesity)? @ -None Was patient admitted / discharged? Hospital course, mention meds given and route, prescriptions, significant lab abnormalities, going to OR and other pertinent info. @ -48-year-old female no significant comorbidities presents to the emergency department with acute abdominal pain. Vital signs upon arrival are within acceptable limits. Laboratory evaluation obtained. Leukocytosis 16.1. Metabolic panel is negative. Urinalysis negative. CT shows uncomplicated diverticulitis. Patient evaluated 11:37 PM. Labs and imaging were discussed with patient. Patient is agreeable for discharge. She is given a dose of antibiotics prior to discharge. Prescription sent for 5 days of Augmentin. Advised follow-up with primary care doctor. Undiagnosed new problem with uncertain prognosis? @ -No Drug Therapy requiring intensive monitoring for toxicity (Heparin, Nitro, Insulin, Cardizem)? @ -No Were any procedures done? @ -No Diagnosis/symptom? Acute, or Chronic, or Acute on Chronic? Uncomplicated (without systemic symptoms) or Complicated (systemic symptoms)? @ -Sigmoid diverticulitis Side effects of treatment? @ -No Exacerbation, Progression, or Severe Exacerbation? @ -No Poses a threat to life or bodily function? How? (Chest pain, [place], [place], pneumonia, PE, COPD, DKA, ARF, appy, cholecystitis, CVA, Diverticulitis, Homicidal, Suicidal, threat to staff... and all critical care pts) @ -No (Yony Bingham) - Lab Data Lab Results 04/14/24 04/14/24 04/14/24 Range/Units 21:17 21:17 21:17 WBC 16.1 H (3.8-10.6) k/uL RBC 4.37 (3.80-5.40) m/uL Hgb 13.5 (11.4-16.0) gm/dL Hct 40.5 (34.0-46.0) % MCV 92.7 (80.0-100.0) fL MCH 30.8 (25.0-35.0) pg MCHC 33.2 (31.0-37.0) g/dL RDW 12.8 (11.5-15.5) % Plt Count 272 (150-450) k/uL MPV 8.3 Neutrophils % 81 % Lymphocytes % 10 % Monocytes % 6 % Eosinophils % 1 % Basophils % 1 % Neutrophils # 13.1 H (1.3-7.7) k/uL Lymphocytes # 1.6 (1.0-4.8) k/uL Monocytes # 1.0 (0-1.0) k/uL Eosinophils # 0.1 (0-0.7) k/uL Basophils # 0.1 (0-0.2) k/uL Sodium 137 (137-145) mmol/L Potassium 3.9 (3.5-5.1) mmol/L Chloride 106 (98-107) mmol/L Carbon Dioxide 25 (22-30) mmol/L Anion Gap 6 mmol/L BUN 10 (7-17) mg/dL Creatinine 0.68 (0.52-1.04) mg/dL Est GFR (CKD-EPI)AfAm >90 (>60 ml/min/1.73 sqM) Est GFR (CKD-EPI)NonAf >90 (>60 ml/min/1.73 sqM) Glucose 103 H (74-99) mg/dL Plasma Lactic Acid Lorenzo 0.9 (0.7-2.0) mmol/L Calcium 8.9 (8.4-10.2) mg/dL Total Bilirubin 0.9 (0.2-1.3) mg/dL AST 22 (14-36) U/L ALT 15 (4-34) U/L Alkaline Phosphatase 68 (38-126) U/L Total Protein 7.0 (6.3-8.2) g/dL Albumin 4.0 (3.5-5.0) g/dL Amylase 48 (30-110) U/L Lipase 50 (23-300) U/L Urine Color Urine Appearance (Clear) Urine pH (5.0-8.0) Ur Specific [place] (1.001-1.035) Urine Protein (Negative) Urine Glucose (UA) (Negative) Urine Ketones (Negative) Urine Blood (Negative) Urine Nitrite (Negative) Urine Bilirubin (Negative) Urine Urobilinogen (<2.0) mg/dL Ur Leukocyte Esterase (Negative) Urine RBC (0-5) /hpf Urine WBC (0-5) /hpf Ur Squamous Epith Cells (0-4) /hpf Urine Bacteria (None) /hpf 01/09/24 Range/Units 21:18 WBC (3.8-10.6) k/uL RBC (3.80-5.40) m/uL Hgb (11.4-16.0) gm/dL Hct (34.0-46.0) % MCV (80.0-100.0) fL MCH (25.0-35.0) pg MCHC (31.0-37.0) g/dL RDW (11.5-15.5) % Plt Count (150-450) k/uL MPV Neutrophils % % Lymphocytes % % Monocytes % % Eosinophils % % Basophils % % Neutrophils # (1.3-7.7) k/uL Lymphocytes # (1.0-4.8) k/uL Monocytes # (0-1.0) k/uL Eosinophils # (0-0.7) k/uL Basophils # (0-0.2) k/uL Sodium (137-145) mmol/L Potassium (3.5-5.1) mmol/L Chloride (98-107) mmol/L Carbon Dioxide (22-30) mmol/L Anion Gap mmol/L BUN (7-17) mg/dL Creatinine (0.52-1.04) mg/dL Est GFR (CKD-EPI)AfAm (>60 ml/min/1.73 sqM) Est GFR (CKD-EPI)NonAf (>60 ml/min/1.73 sqM) Glucose (74-99) mg/dL Plasma Lactic Acid Lorenzo (0.7-2.0) mmol/L Calcium (8.4-10.2) mg/dL Total Bilirubin (0.2-1.3) mg/dL AST (14-36) U/L ALT (4-34) U/L Alkaline Phosphatase (38-126) U/L Total Protein (6.3-8.2) g/dL Albumin (3.5-5.0) g/dL Amylase (30-110) U/L Lipase (23-300) U/L Urine Color Colorless Urine Appearance Cloudy H (Clear) Urine pH 6.5 (5.0-8.0) Ur Specific [place] 1.005 (1.001-1.035) Urine Protein Negative (Negative) Urine Glucose (UA) Negative (Negative) Urine Ketones Trace H (Negative) Urine Blood Small H (Negative) Urine Nitrite Negative (Negative) Urine Bilirubin Negative (Negative) Urine Urobilinogen <2.0 (<2.0) mg/dL Ur Leukocyte Esterase Negative (Negative) Urine RBC 1 (0-5) /hpf Urine WBC 1 (0-5) /hpf Ur Squamous Epith Cells 8 H (0-4) /hpf Urine Bacteria Occasional H (None) /hpf Disposition <Blaire Abel - Last Filed: 01/09/24 21:53> Is patient prescribed a controlled substance at d/c from ED?: No Time of Disposition: 23:35 <Yony Bingham - Last Filed: 01/09/24 23:38> Clinical Impression: Diverticulitis Disposition: HOME SELF-CARE Condition: Good Instructions (If sedation given, give patient instructions): Diverticulitis (ED) Prescriptions: Amoxic-Pot Clav 875-125Mg [Augmentin 875-125] 1 tab PO Q8H 5 Days #15 tab Referrals: Diana Ware MD [Primary Care Provider] - 1-2 days
--- NOTE | 2024-01-09 22:46 | CT ---
EXAM: CT Abdomen and Pelvis With Intravenous Contrast CLINICAL HISTORY: ITS.REASON CT Reason: pelvic pain TECHNIQUE: Axial computed tomography images of the abdomen and pelvis with intravenous contrast. CTDI is 16.5 mGy and DLP is 788.4 mGy-cm. This CT exam was performed using one or more of the following dose reduction techniques: automated exposure control, adjustment of the mA and/or kV according to patient size, and/or use of iterative reconstruction technique. COMPARISON: 07/13/2022 FINDINGS: Lung bases: Unremarkable. No mass. No consolidation. ABDOMEN: Liver: Unremarkable. No mass. Gallbladder and bile ducts: Unremarkable. No calcified stones. No ductal dilation. Pancreas: Unremarkable. No mass. No ductal dilation. Spleen: Unremarkable. No splenomegaly. Adrenals: Unremarkable. No mass. Kidneys and ureters: Mild left hydronephrosis without dilated ureter stable from prior exam. No solid mass. No hydronephrosis. Stomach and bowel: Acute mid sigmoid diverticulitis deep in the pelvis without evidence of focal abscess or rupture. No obstruction. PELVIS: Appendix: No findings to suggest acute appendicitis. Bladder: Unremarkable. No mass. Reproductive: Unremarkable as visualized. ABDOMEN and PELVIS: Intraperitoneal space: Unremarkable. No free air. No significant fluid collection. Bones/joints: No acute fracture. No dislocation. Soft tissues: Unremarkable. Vasculature: Unremarkable. No abdominal aortic aneurysm. Lymph nodes: Unremarkable. No enlarged lymph nodes. IMPRESSION: Acute mid sigmoid diverticulitis deep in the pelvis without evidence of focal abscess or rupture.
[2024-01-10] MEDS: AMOXIC-POT CLAV 875-125MG 1 EACH TAB PO STA (00:11)
[2024-01-10 00:53] VITALS: BP 122/80; PULSE 65; RESP 18; TEMP 97.4
== END 2024-01-09 23:38 | disposition home or self-care (01) ==
LOC: EC 20:41
DX: K57.32 Diverticulitis of large intestine without perforation or abscess without bleeding (principal)
CPT/HCPCS: 36415; 80053; 82150; 83605; 83690; 85025; 81001; 74018; 74177; 99284; Q9967

== ENCOUNTER 2024-02-29 08:06 | Day surgery (SDC) | payer MEDICAID ==
[~2024-02-29 08:06] MED LIST changes: -LACTATED RINGERS 1,000 ML IV SCH; +LIDOCAINE 1% (10MG/ML) FOR IV START INTRADERMA PRN
[2024-02-29] MEDS: LACTATED RINGERS 1,000 ML IV SCH (08:20)
[2024-02-29 08:36] VITALS: TEMP 98.2
[2024-02-29] MEDS ORDERED: PROPOFOL 10 MG/ML 20 ML VIAL IV ONE (08:53)
--- NOTE | 2024-02-29 08:58 | P.GSHP ---
History of Present Illness H&P Date: 02/29/24 Chief Complaint: Colon cancer screening 48-year-old female here for colonoscopy. Patient here for screening colonoscopy. No bowel complaints. No rectal bleeding or melena. No family history of colon cancer. She was in the ER in December with a case of sigmoid diverticulitis. Past Medical History Past Medical History: Cancer Additional Past Medical History / Comment(s): basal cell skin cancer History of Any Multi-Drug Resistant Organisms: None Reported Past Surgical History: Section Additional Past Surgical History / Comment(s): kidney surgery Past Anesthesia/Blood Transfusion Reactions: No Reported Reaction Smoking Status: Never smoker - Past Family History Father Family Medical History: Cancer, Hyperlipidemia, Hypertension Additional Family Medical History / Comment(s): prostate Daughter(s) Family Medical History: Diabetes Mellitus Additional Family Medical History / Comment(s): type 1 Medications and Allergies Home Medications Medication Instructions Recorded Confirmed Type Acetaminophen [Tylenol] 325 mg PO DIRECTED 02/24/24 02/29/24 History Cetirizine HCl [Zyrtec] 10 mg PO HS 02/24/24 02/24/24 History Escitalopram [Lexapro] 5 mg PO HS 02/24/24 02/24/24 History Allergies Allergy/AdvReac Type Severity Reaction Status Date / Time No Known Allergies Allergy Verified 02/24/24 15:55 Surgical - Exam Vital Signs Temp Pulse Resp BP Pulse Ox 98.2 F 67 18 113/76 99 02/29/24 08:34 02/29/24 08:34 02/29/24 08:34 02/29/24 08:34 02/29/24 08:34 Physical exam: General: Well-developed, well-nourished HEENT: Normocephalic, sclerae nonicteric Abdomen: Nontender, nondistended Extremities: No edema Neuro: Alert and oriented Assessment and Plan (1) Colon cancer screening Narrative/Plan: Will proceed with colonoscopy at this time. Current Visit: Yes Status: Acute Code(s): Z12.11 - ENCOUNTER FOR SCREENING FOR MALIGNANT NEOPLASM OF COLON SNOMED Code(s): 649833917
[2024-02-29 09:31] VITALS: BP 104/71; PULSE 57; RESP 16
== END 2024-02-29 10:01 | disposition home or self-care (01) ==
LOC: ORWHC2ENDO 08:06
PROVIDERS: ATTEND Surgery
DX: Z12.11 Encounter for screening for malignant neoplasm of colon (principal); F41.9 Anxiety disorder, unspecified; Z85.828 Personal history of other malignant neoplasm of skin; Z79.899 Other long term (current) drug therapy; K57.30 Diverticulosis of large intestine without perforation or abscess without bleeding
CPT/HCPCS: 81025; 45378; J2704

== ENCOUNTER → 2025-01-10 | Outpatient (CLI) | payer MEDICAID ==
[2025-01-10 10:30] LABS: HCT 43.8 % (37.2-46.3); MCH 29.2 pg (27.0-32.0); MCV 91.4 FL (80.0-97.0); Mean Platelet Volume 10.3 FL (9.5-12.2); NRBC Per 100 WBC 0 X 10*3/uL (0.00-0.01); Platelet Count 298 X 10*3/uL (140-440); RBC 4.79 X 10*6/uL (4.10-5.20); RDW 12.8 % (11.5-14.5); WBC 7.55 X 10*3/uL (4.50-10.00)
[2025-01-10 11:00] LABS: Chol/HDL Ratio 2.25 Ratio; Estradiol 87.9 pg/mL; LDL Cholesterol,Calculated 82.4 mg/dL (0.0-131.0); T4, Free (Free Thyroxine) 1.21 ng/dL (0.80-1.80); VLDL Calculation 11.96 mg/dL (5.00-40.00)
[2025-01-10 15:39] LABS: Follicle Stimulating Hormone 3.2 mIU/mL; Luteinizing Hormone 3.4 mIU/mL
== END | disposition home or self-care (01) ==
LOC: LABMAIN 08:15
PROVIDERS: ATTEND Obstetrics & Gynecology Obstetrics
DX: C65.9 Malignant neoplasm of unspecified renal pelvis (principal); G47.00 Insomnia, unspecified; N95.9 Unspecified menopausal and perimenopausal disorder; R53.83 Other fatigue; R61 Generalized hyperhidrosis
CPT/HCPCS: 80061; 82670; 83001; 83002; 83036; 84144; 84403; 84439; 84443; 85027

== ENCOUNTER → 2025-02-06 | Outpatient (CLI) | payer MEDICAID ==
--- NOTE | 2025-02-06 10:34 | MM ---
Reason for Exam: Screening (asymptomatic). Last mammogram was performed 2 year(s) and 1 month(s) ago. Patient History: Menarche at age 14. First Full-Term at age 23. Premenopausal. Other cancer, age 42. Currently using Progesterone. Patient used Hormonal Contraceptives for 4 years. Last menstrual period: 12/29/2024 Risk Values: Rukhsana 5 year model risk: 0.8%. NCI Lifetime model risk: 8.3%. Prior Study Comparison: 04/04/2021 Right Diagnostic Mammogram, [facility]. 11/27/2021 Bilateral Diagnostic Mammogram, [facility]. 01/19/2023 Bilateral MG 3D screening mammo w/cad, [facility]. Tissue Density: The breasts are heterogeneously dense, which may obscure small masses. Findings: Analyzed By CAD. Stable 7 mm circumscribed oval mass in the right breast. There is no suspicious group of microcalcifications or new suspicious mass in either breast. Overall Assessment: Benign, BI-RAD 2 Management: Screening Mammogram of both breasts in 1 year. Some advise annual bilateral breast ultrasound surveillance in patients with background dense tissue. Patient should continue monthly self-breast exams. A clinical breast exam by your physician is recommended on an annual basis. This exam should not preclude additional follow-up of suspicious palpable abnormalities. Note on Rukhsana scores and lifetime risk: 1. A Rukhsana score greater than 3% is considered moderate risk. If this is the case, consider specialist referral to assess eligibility for a risk reducing agent. 2. If overall lifetime risk for the development of breast cancer is 20% or higher, the patient may qualify for future screening with alternating mammogram and breast MRI. [facility], , 02/06/2025 10:31 AM. Electronically signed and approved by: Ricardo Lindsey M.D.
== END | disposition home or self-care (01) ==
LOC: RADMAMWWP 01-10 07:57
PROVIDERS: ATTEND Obstetrics & Gynecology Obstetrics
DX: Z12.31 Encounter for screening mammogram for malignant neoplasm of breast (principal); R92.333 Mammographic heterogeneous density, bilateral breasts; N63.10 Unspecified lump in the right breast, unspecified quadrant; Z92.0 Personal history of contraception
CPT/HCPCS: 77063; 77067